=== PATIENT | male | born 1970 ===

== ENCOUNTER 2018-12-21 10:27 | Observation (INO) | payer BC ==
[2018-12-21 11:03] LABS: #Basophils 0.1 thou/uL (0.0-0.2); #Eosinphils 0.2 thou/uL (0.0-0.7); #Lymphocytes 2.6 thou/uL (1.20-3.40); #Monocytes 0.8 thou/uL (0.11-0.59); #Neutrophils 6.7 thou/uL (1.40-6.50); %Basophils 1.1 % (0.0-1.0); %Eosinophils 2.2 % (0.0-10.0); %Lymphocytes 24.6 % (21.0-51.0); %Monocytes 7.7 % (0.0-10.0); %Neutrophils 64.5 % (42.0-75.0); Hemoglobin 16.3 g/dL (14.0-18.0); Mean Corpuscular HGB CONC 32.6 g/dL (32.0-36.0); Mean Corpuscular Hemoglobin 28.1 pg (27.0-31.0); Mean Corpuscular Volume 86.2 fL (78.0-98.0); Mean Platelet Volume 6.2 fL (7.4-10.4); Platelet Count 277 thou/uL (130-400); RBC Distribution Width 13.4 % (11.5-14.5); Red Blood Cell (RBC) Count 5.81 mill/uL (4.70-6.10); White Blood Cell (WBC) Count 10.4 thou/uL (4.8-10.8)
[2018-12-21 11:10] LABS: PTT 28.9 SEC (22.9-36.1); Prothrombin Time 12.7 SEC (12.0-14.7)
--- NOTE | 2018-12-21 11:12 | CT ---
CT BRAIN WITHOUT CONTRAST: HISTORY: Level 2 stroke. Slurred speech FINDINGS: No evidence of acute infarct, hemorrhage, midline shift or abnormal extra-axial fluid collections is seen. The ventricular size is appropriate and the basilar cisterns are patent. The bony calvarium is intact. The visualized paranasal sinuses and mastoid air cells are well aerated. IMPRESSION: No CT evidence of acute intracranial process. Discussed over the telephone with ER physician Dr. Ankur Butler at 11:05 AM
[2018-12-21 11:25] LABS: ALT (SGPT) 25 U/L (8-55); AST (SGOT) 20 U/L (5-34); Albumin 4.9 g/dL (3.5-5.0); Alkaline Phosphatase 67 U/L (40-150); Anion Gap 14 mmol/L (10-20); BUN (Urea Nitrogen) 11 mg/dL (8.9-20.6); Bilirubin, Total 0.5 mg/dL (0.2-1.2); Calc. Creatinine Clearance 0 mL/min (70-130); Calcium 9.9 mg/dL (7.8-10.44); Carbon Dioxide 25 mmol/L (22-29); Chloride 102 mmol/L (98-107); Estimated GFR-MDRD 82; Globulin 2.9 g/dL (2.4-3.5); Glucose 97 mg/dL (70-105); Protein, Total 7.8 g/dL (6.0-8.3)
[2018-12-21] MEDS ORDERED: Aspirin 325 MG TAB ONE (11:30)
[2018-12-21 11:40] LABS: Sodium 137 mmol/L (136-145)
[2018-12-21] MEDS ORDERED: Acetaminophen 325 MG TAB PO PRN (12:21)
[2018-12-21] MEDS ORDERED: hydrALAZINE 20 MG/ML VIAL SLOW IVP PRN (12:21)
[2018-12-21] MEDS ORDERED: Ondansetron PF 4 MG/2 ML Vial IVP PRN (12:21)
[2018-12-21] MEDS ORDERED: HYDROcodone/Acetaminophen 5/325 mg Tablet PO PRN (12:21)
--- NOTE | 2018-12-21 12:48 | RAD ---
CHEST 2 VIEWS: HISTORY: CVA. Slurred speech. COMPARISON: 12/06/2010. FINDINGS: Normal cardiac silhouette. Lungs and pleural spaces are clear. No pneumothorax or osseous abnormali ties. IMPRESSION: No acute cardiopulmonary process. POS: [facility]
--- NOTE | 2018-12-21 13:00 | HP ---
HISTORY OF PRESENT ILLNESS: This is a 48-year-old white male, who presents with an altered mental status. The patient one or two weeks ago, presented to the office with shoulder pain and was given a Medrol Dosepak. He completed this yesterday. He was doing well otherwise until approximately 9:00 a.m. this morning when while at work, he suddenly was unable to talk. He was on his computer trying to enter a pass code, but was unable to see clearly and was unable to enter the pass code. His co-worker then immediately brought him to the hospital. The patient was complaining of right eye twitching and right hand numbness, this lasted for 1 to 2 hours. At this time, 3 hours later, he states that his numbness and twitching has resolved. However, he is still unable to talk. He is able to comprehend and he is able to type without any difficulty. He is ambulatory. He does not complain of any extremity weakness. No nausea, vomiting. No other recent illnesses. PAST MEDICAL HISTORY: Includes a history of morbid obesity, status post gastric sleeve in 2010. He has lost significant weight. He has a history of chronic sinusitis/allergic rhinitis. He quit tobacco in 2004. He has a history of sleep apnea, which has resolved. He was previously on CPAP. He has history of reflux. PAST SURGICAL HISTORY: Include colonoscopy by Dr. Sprague; history of nasal surgery x2; status post vasectomy. In 2007, he had a lap band surgery. In May of 2009, he had gastric sleeve by Dr. Carrillo. FAMILY HISTORY: Mother with celiac disease. Paternal grandfather with liver cancer and stomach cancer. Paternal grandmother with heart disease. Maternal grandfather with prostate cancer and pancreatic cancer. Maternal grandmother with breast cancer and [place]. Father with prostate cancer. MEDICATIONS: Dexilant 60 mg daily. REVIEW OF SYSTEMS: As above. PHYSICAL EXAMINATION: VITAL SIGNS: Stable. Afebrile. GENERAL: No acute distress at this time. HEENT: Clear. Pupils are equal, reactive to light. Extraocular movements are intact. TM, nose, and throat clear. NECK: Supple. No bruits noted. CARDIOVASCULAR: Regular rate and rhythm without murmur. LUNGS: Clear. ABDOMEN: Soft and nontender. EXTREMITIES: The patient moves all extremities. Normal sensory and motor bilaterally. DTR symmetrical. NEUROLOGIC: Cranial nerves II through XII intact except for speech. Normal sensory and motor exam. Normal rapid alternating movements. Normal [id number]. LABORATORY DATA: White count 10.4, H and H 16 and 50, platelets 277. Electrolytes normal. Creatinine 0.98. Liver functions normal. Troponin less than 0.010. Brain CT negative. ASSESSMENT: 1. Cerebrovascular accident with an expressive aphasia. Rule out transient ischemic attack. 2. History of morbid obesity, status post bypass in 2010. 3. Shoulder pain, resolving, just completed Medrol Dosepak yesterday. PLAN: 1. Consult Neuro. 2. Carotid Doppler. 3. MRI of the brain. 4. Additional labs will include JAYLIN, CRP, vitamin B1, B12, folate, RPR, HIV, and urine drug screen. Job ID: [id number]
--- NOTE | 2018-12-21 13:09 | MRI ---
MRI BRAIN WITHOUT CONTRAST: HISTORY: Level 2 stroke. Slurred speech CORRELATION: CT scan from 12/20/2018. FINDINGS: No restricted diffusion is seen. The ventricular size is appropriate and the basilar cisterns are pat ent. No evidence of acute infarct, hemorrhage, midline shift or abnormal extra-axial fluid collections is seen. There is mucosal disease in the paranasal sinuses. IMPRESSION: No evidence of acute intracranial process.
[2018-12-21 15:23] LABS: Syphilis Antibody Nonreactive (Nonreactive); Syphilis Antibody Index 0.04 S/CO (<1.00 Non-Reactive)
[2018-12-21 15:24] LABS: HIV (1/2) Antibody/Antigen Non-Reactive (NonReactive); HIV 1/2 INDEX 0.13 S/CO (<1.00); Vitamin D, 25 Hydroxy 23.9 ng/ml (> 30.0)
[2018-12-21] MEDS: ALPRAZolam 0.25 MG TAB PO PRN ×2 (15:24→21:46)
[2018-12-21 15:37] LABS: Folate (Folic Acid) 10.1 ng/mL (7.0-31.4)
[2018-12-21 16:00] VITALS: BMI 25.3
--- NOTE | 2018-12-21 16:04 | ULT ---
BILATERAL CAROTID DUPLEX ULTRASOUND: HISTORY: CVA TECHNIQUE: Grayscale, color-flow and spectral Doppler ultrasound imaging of the extracranial carotid artery syst ems was performed bilaterally. FINDINGS: There is plaque formation on both sides. The peak systolic velocity in the right ICA measures 64 cm/s with an end-diastolic velocity of 17 cm/ s and a systolic ratio of 0.61. The peak systolic velocity in the left ICA measures 107 cm/s with an end-diastolic velocity of 35 cm/s and a systolic ratio of 0.62. Flow in both vertebral arteries remains antegrade. IMPRESSION: No evidence of hemodynamically significant stenosis in either ICA
[2018-12-21 18:12] LABS: ANA Symphony (Qualitative) Negative (Negative); ANA Symphony (Quantitative) 0.2 Ratio (< 0.7 Negative); CCP IgG Antibody 1.2 EliAU/mL (<7 Negative); EliA RAS New Method **** NEW METHOD ****; Rheumatoid Factor IgA Antibody 5.2 IU/mL (<14 Negative); Rheumatoid Factor IgM Antibody Less than 0.5 IU/mL (<3.5 Negative); dsDNA IgG Antibody 3.2 IU/mL (<10 Negative)
[2018-12-21 19:05] LABS: Amphetamine Not Detected (NotDetected); Barbiturates Screen Not Detected (NotDetected); Benzodiazepine Screen Not Detected (NotDetected); Cocaine Metabolite Screen Not Detected (NotDetected); Medtox Control Line Valid? VALID (VALID); Medtox Reader # READER 1; Methadone Not Detected (NotDetected); Methamphetamine Not Detected (NotDetected); Opiate Screen Not Detected (NotDetected); Oxycodone Screen Not Detected (NotDetected); Phencyclidine (PCP) Not Detected (NotDetected); THC/Cannabinoid Screen Not Detected (NotDetected); Tricyclic Screen Not Detected (NotDetected)
[2018-12-21] MEDS ORDERED: Rosuvastatin 20 MG TAB PO SCH (21:00)
[2018-12-21] MEDS: Famotidine 20 MG TAB PO SCH (21:45)
[2018-12-21] MEDS: Sodium Chloride 0.9% 1,000 ML IV SCH (21:45)
[2018-12-21] MEDS: Aggrenox 200-25mg CAP PO SCH (21:45)
[2018-12-21] MEDS ORDERED: DEXLANSOPRAZOLE PO SCH (23:30)
[2018-12-22 06:22] LABS: #Basophils 0.1 thou/uL (0.0-0.2); #Eosinphils 0.3 thou/uL (0.0-0.7); #Lymphocytes 2.5 thou/uL (1.20-3.40); #Monocytes 0.7 thou/uL (0.11-0.59); #Neutrophils 5.2 thou/uL (1.40-6.50); %Eosinophils 3.8 % (0.0-10.0); %Lymphocytes 28.3 % (21.0-51.0); %Monocytes 8.3 % (0.0-10.0); %Neutrophils 58.6 % (42.0-75.0); Hemoglobin 13.8 g/dL (14.0-18.0); Mean Corpuscular HGB CONC 33.6 g/dL (32.0-36.0); Mean Corpuscular Hemoglobin 29.4 pg (27.0-31.0); Mean Corpuscular Volume 87.3 fL (78.0-98.0); Mean Platelet Volume 6.3 fL (7.4-10.4); Platelet Count 233 thou/uL (130-400); RBC Distribution Width 13.5 % (11.5-14.5); White Blood Cell (WBC) Count 8.8 thou/uL (4.8-10.8)
[2018-12-22 06:55] LABS: Anion Gap 9 mmol/L (10-20); BUN (Urea Nitrogen) 12 mg/dL (8.9-20.6); Calc. Creatinine Clearance 114 mL/min (70-130); Calcium 8.4 mg/dL (7.8-10.44); Carbon Dioxide 26 mmol/L (22-29); Cardiac Risk 4.4 (Less than 4.5); Chloride 106 mmol/L (98-107); Cholesterol 149 mg/dl (< 200 Desired); Estimated GFR-MDRD Greater than 90; Glucose 91 mg/dL (70-105); HDL Cholesterol 34 mg/dL (>60 Neg Risk); LDL Cholesterol, Calculated 102 mg/dL; Sodium 137 mmol/L (136-145); Triglycerides 66 mg/dL (Less than 150)
[2018-12-22] MEDS: Aggrenox 200-25mg CAP PO SCH (08:46)
[2018-12-22] MEDS: ALPRAZolam 0.25 MG TAB PO PRN (08:46)
[2018-12-22] MEDS: Famotidine 20 MG TAB PO SCH (08:47)
[2018-12-22] MEDS: Sodium Chloride 0.9% 1,000 ML IV SCH (08:48)
[2018-12-22] MEDS ORDERED: Enoxaparin Sodium 40 MG/0.4 ML SYRINGE SC SCH (09:00)
--- NOTE | 2018-12-22 10:30 | PRG ---
DATE OF SERVICE: 12/22/2018 SUBJECTIVE: The patient is feeling much better. About 8 p.m. last night, he states that his speech cleared up and he was able to speak. He had no further word-finding difficulties and no facial weakness. His states that he was back to his normal state. He feels that after receiving the Xanax and aspirin yesterday, he started noticing his symptoms resolving. He no longer has numbness or tingling in his right side either. He is ambulating with therapy with no difficulties. No weakness. No seizures. No syncope. OBJECTIVE: VITAL SIGNS: Temperature 98.6, pulse is 65, respirations 16, blood pressure 104/62, pulse ox 97% on room air. GENERAL: He is awake and alert. No acute distress. Speech is clear and fluid. NECK: Supple. No bruits. HEART: Regular rate and rhythm. LUNGS: Clear. ABDOMEN: Soft. EXTREMITIES: With no edema. NEUROLOGIC: Cranial nerves 2 through 12 are grossly intact. Strength is 5/5 in upper and lower extremities. Sensation is intact bilaterally. LABORATORY DATA: Reviewed. All normal except a slightly low vitamin D level at 23.9. Tox screen was negative. Rheumatoid factor and JAYLIN were negative. MRI was normal. Chest x-ray was normal. Carotid Dopplers were normal. Brain CT was normal. Echocardiogram is pending. Neurologic evaluation is pending. ASSESSMENT AND PLAN: This is a 48-year-old gentleman with the episode yesterday of right-sided numbness and tingling as well as expressive aphasia. This has all resolved. Possibly secondary to transient ischemic attack versus a stress reaction and conversion disorder. Await neurologic evaluation and echocardiogram. If those appear to be normal, we will possibly discharge home later today. May continue low-dose aspirin daily. Encouraged to quit smoking. He will follow up with Dr. Morris, to continue psychiatric evaluation and possible treatment of anxiety, although he denies any anxiety at this time. DISPOSITION: Possible home today versus later this weekend. Job ID: [id number]
[2018-12-22] MEDS ORDERED: ISOVUE-370 76%-LOCM 1 ML ONE (11:36)
[2018-12-22 15:40] VITALS: BP 106/67; TEMP 98.3
--- NOTE | 2018-12-22 17:10 | CT ---
Exam: Noncontrast head CT Postcontrast head CT Postcontrast soft tissue neck CT CT angiogram of the head and neck HISTORY: CVA. Transient ischemic attack. Right eye twitching, 3 days ago. Dysphagia. Tingling in the right hand. Comparison none TECHNIQUE: CT angiogram the head and neck are performed in the axial plane. Three-dimensional reforma tion images are submitted for interpretation FINDINGS: Noncontrast head CT: No parenchymal hemorrhage No extra-axial hematoma No midline shift Basilar cisterns are patent Brain volume is age-appropriate Cortical franco-white matter junction is preserved No hydrocephalus Calvarium is intact. Mild left maxillary sinus disease Postcontrast head CT: No pathologic enhancement brain parenchyma Postcontrast soft tissue neck CT: Bilateral orbits are normal. Aerodigestive tract is patent. No muco vicky abnormality. Midline fatty raphae of the tongue preserved. Epiglottis is unremarkable. There is mild fullness of the lingual tonsils Symmetric attenuation of the parotid and submandibular glands Symmetric attenuation of sternocleidomastoid muscles No evidence of lymphadenopathy by size criteria Cervical spine vertebral body height is maintained. No fracture. There is multilevel degenerative dis c disease. There is moderate central canal stenosis at C5-C6 secondary to central disc protrusion and C6-C7 secondary to left paracentral discussed by complex. Varying degrees of foraminal narrowing Lung apices and upper mediastinum are unremarkable for acute abnormality CT angiogram of the neck: There is appropriate enhancement and luminal diameter of the visualized aor ta Right carotid: Right carotid artery origin, common carotid artery, carotid bifurcation and internal c arotid artery have appropriate enhancement and diameter. Left carotid: Left carotid artery origin, common carotid artery, carotid bifurcation and internal car otid artery have appropriate enhancement and diameter Bilateral subclavian arteries are patent Bilateral cervical vertebral arteries are patent throughout the course of the neck and are essentiall y co-dominant CT angiogram of the head: The intracranial internal carotid arteries have appropriate enhancement and diameter Anterior circulation: Symmetric enhancement and luminal diameter the A1 and M1 segments. Proximal A2 segments and proximal MCA branches have symmetric enhancement and diameter Posterior circulation: Left PICA artery origin is unremarkable. Limited evaluation the right PICA art kesha origin. Both vertebral arteries supply a normal caliber basilar artery. Bilateral P1 segments have symmetric enhancement and luminal diameter IMPRESSION: 1. No significant stenosis of the level [place] 2. No significant stenosis with regards to the cervical carotid arteries, based on NASCET criteria
[2018-12-22] MEDS ORDERED: DEXLANSOPRAZOLE PO SCH (21:00)
--- NOTE | 2018-12-23 00:16 | CON ---
DATE OF TELEMEDICINE CONSULTATION WITH JOSE CHO: 12/22/2018 CHIEF COMPLAINT: Possible acute stroke. 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 Last week, he noticed right eye twitching on Monday and he also reported a visual distortion where if he is looking at people, it looked like the other people had one eye droopy and asymmetric. He was talking to a family member over the phone; instead of saying "I didn't have the correct number" he could not say the words right and they were all like jumbled. He went to a mirror to check his face again and it looked okay. Then, he felt his words got from gibberish to inability to talk and he stopped talking to people. He also experienced right arm numbness. Overall, he experienced eye twitching for about 3-4 days, speech difficulty for 8-10 hours, and he was not even typing well to his coworkers. Once they gave him aspirin, he was able to type okay and now, his speech is back to normal. He also recalls that he was not able to decipher a website, which is not like his normal self. He thinks numbness lasted about half hour to one hour after aspirin. No weakness was reported. No dizziness. No loss of vision, but there was visual distortion. Today, he is back to his baseline. PREVIOUS MEDICAL HISTORY: The patient had a gastric sleeve and lap band surgery in the past for obesity and the patient does not have any history of diabetes, hypertension, or hyperlipidemia. He lost significant amount of weight after his gastric sleeve surgery in 2010. He also has history of chronic sinusitis or allergic rhinitis. The patient also has history of sleep apnea and was on CPAP. Has reflux esophagitis. PAST SURGICAL HISTORY: Colonoscopy, history of nasal surgery, vasectomy and in 2007, he had lap band surgery and the lap band was later corrected into a gastric sleeve in 2010. FAMILY HISTORY: His mother is 68, has celiac disease. His dad is 70 and is healthy. His maternal grandfather had prostate cancer. Maternal grandmother had breast cancer and TIA. He has 2 children, 22 and 11, both are healthy. SOCIAL HISTORY: Smokes 1 pack a day since 2011. He quit 5 years before that, but has had long history of smoking since teenage years. He drinks 1-2 beers per day since teenage years. He works at a home. Lives with his . HOME MEDICATIONS: He takes Dexilant 60 mg per day for acid reflux. REVIEW OF SYSTEMS: PULMONARY: Negative for shortness of breath or cough. GI: Positive for gastric sleeve and another surgery for weight loss in the past. DERMATOLOGIC: Negative for any skin lesions or rash. HEMATOLOGIC: Negative for bleeding diathesis. PSYCHIATRIC: Negative for anxiety or depression. NEUROLOGIC: Positive for right eye twitching, visual distortion plus numbness and speech difficulty. All have resolved at this time. ENT: Positive for prior history of sinusitis. OPHTHALMOLOGIC: Positive for visual distortions. LABORATORY WORKUP: White count 8.8, hemoglobin 13.8, hematocrit 41, platelet count 233. Chemistry; sodium 137, potassium 4, chloride 106, bicarb 26, BUN 12, creatinine 0.83. Lipid profile and cholesterol were all within normal limits. Vitamin B12 is 315, vitamin D was low at 23.9. Folate is 10.10. Urine tox screen was negative. JAYLIN and rheumatoid factor were all within normal limits. Syphilis and HIV antigen are negative. His MRI of the brain was negative for any acute infarct. I also requested a CT angio of the head and neck and it has been reported by the time of this dictation and it was negative for any stenotic lesions either in the [place] or in cervical segment. PHYSICAL EXAMINATION: VITAL SIGNS: Temperature 98.6, pulse 65, respiratory rate 16, O2 sats 97, blood pressure 104/62. GENERAL APPEARANCE: Well-built, well-nourished gentleman. CHEST: Clear vesicular breathing. CARDIOVASCULAR: S1, S2 heard. No murmurs. ABDOMEN: Soft. No organomegaly noted. NEUROLOGICAL: Higher intellectual functions. Normal orientation to time, place , and person. Cranial nerves 2 through 12; normal extraocular movements. Pupils are 2 mm, reactive to light and normal sensation of face bilaterally. No facial asymmetry noted. Normal hearing to finger rub bilaterally. Tongue midline. No atrophy noted. Normal elevation of palate bilaterally. Motor examination; bulk normal, tone normal, strength 5/5 throughout in iliopsoas, hamstrings, quadriceps, ankle dorsiflexion, plantar flexion, deltoid, biceps, triceps, wrist extension and flexion, finger extension and flexion bilaterally and deep tendon reflexes were 2+ throughout. Cerebellar; normal [id number] and [id number]. Sensory; normal to touch bilaterally. Gait was not tested. IMPRESSION: The patient is a 48-year-old man with prior history of obesity and risk factors for stroke include smoking and alcohol use. His examination is currently normal. He has had history of transient right eye twitching, visual distortion along with numbness of the right arm plus aphasia. His most likely diagnosis is a transient ischemic attack. RECOMMENDATIONS: Please complete his cardiac workup since there is no vascular abnormality in the carotid area. He may have had a small cardiac embolic event. Echocardiogram. Aspirin plus statin for prophylaxis. Call us if there are any further questions. Patient can be discharged once his workup is complete. Job ID: [id number] MTDD
--- NOTE | 2018-12-23 12:17 | DIS ---
DATE OF ADMISSION: 12/21/2018 DATE OF DISCHARGE: 12/22/2018 ADMISSION DIAGNOSES: 1. Mental status change. 2. Acute expressive aphasia, resolved. DISCHARGE DIAGNOSES: Aphasia resolved. Mental state back to baseline. OTHER DIAGNOSES: 1. Tobacco abuse. 2. History of obesity. 3. History of sleep apnea. CONSULTATIONS: Dr. Urena for Neurology. PROCEDURES: Brain CT, carotid Doppler, chest x-ray, brain MRI, CT angiogram of the brain and neck, echocardiogram. HOSPITAL COURSE: This is a 48-year-old gentleman, who was in his usual state of health until the day of admission when he developed more confusion, problems carrying out usual tasks at work. He developed right hand numbness and tingling as well as expressive an aphasia. His brought him into the emergency department for evaluation. He had a normal workup including normal brain CT. He was admitted. He underwent carotid Dopplers, which were negative. Brain MRI, which was negative and was seen by Dr. Urena. She recommended a CT angiogram to rule out any small vessel disease and that was normal as well. During this time, the symptoms resolved completely. His states that he is back at his baseline. It seems consistent with a TIA. He remained stable throughout the remaining of his hospitalization. His blood pressure remained stable, and again, he was back at his baseline and ready for discharge home. DISCHARGE PHYSICAL EXAMINATION: VITAL SIGNS: Temperature 98.3, pulse is 75, respirations 15, pulse ox 97% on room air. Blood pressure 106/67. GENERAL: He is awake, alert, in no acute distress. Speech is clear and fluent. NECK: Supple. No bruits. HEART: Regular rate and rhythm. LUNGS: Clear. ABDOMEN: Soft. EXTREMITIES: With no edema. NEUROLOGIC: Cranial nerves 2 through 12 are intact. Strength is 5/5 in upper and lower extremities. Sensation is intact. DISCHARGE MEDICATIONS: Include; 1. Crestor 20 mg daily. 2. Dexilant daily. 3. Aggrenox one capsule b.i.d. 4. Tylenol p.r.n. It was discussed with him due to the episode of a TIA that we would need to protect him from having a stroke including statin therapy and anti-platelet therapy, possibly could decrease to a regular aspirin once okay with Neurology. Discharge instructions also discussed smoking cessation, to decrease his risks and he understood the risks. FOLLOWUP INSTRUCTIONS: The patient to followup with Dr. Morris in 1 to 2 weeks and with Neurology [place] Job ID: [id number]
== END 2018-12-22 19:27 | disposition home or self-care (01) ==
LOC: ERS 10:27 → 2SE 12:00
PROVIDERS: ADMIT Family Medicine; ATTEND Family Medicine
DX: R41.82 Altered mental status, unspecified (principal); R47.01 Aphasia; R20.0 Anesthesia of skin; K21.0 Gastro-esophageal reflux disease with esophagitis; F17.210 Nicotine dependence, cigarettes, uncomplicated; Z98.84 Bariatric surgery status; Z91.011 Allergy to milk products; Z79.899 Other long term (current) drug therapy
CPT/HCPCS: 36415; 70450; 70496; 70498; 70551; 71046; 80048; 80053; 80061; 80306; 82306; 82550; 82607; 82746; 83520; 84425; 84484; 85025; 85610; 85652; 85730; 86038; 86200; 86225; 86780; 87389; 93005; 93306; 93880; 96360; 96361; 96372; G0378; J1650; Q9966